=== PATIENT | male | born 1935 | race Caucasian/White ===

== ENCOUNTER 2016-11-14 07:33 | Emergency (ER) | payer MEDICARE ==
[~2016-11-14] VITALS: Ht 167.6 cm; Wt 86.4 kg
[~2016-11-14 07:33] MED LIST: ALBU2.5V4 INHALATION; BENZ-12 PO; DOXY100C2 PO; METF500T4 PO; OMEG1CAP56 PO; SIMV80TA4 PO; TAMS0.4C98 PO; [UNRECOGNIZED DRUG - OTHER] PO
[2016-11-14 07:40] VITALS: BP 164/90; PULSE 86; RESP 16; O2SAT 95
[2016-11-14] MEDS ORDERED: CHOL100043 PO (07:45)
[2016-11-14] MEDS ORDERED: WEIGHT LOSS MED PO (07:47)
--- NOTE | 2016-11-14 07:52 | ED.REPORT ---
HPI-General Illness Date of Service Nov 14, 2016 ED Provider: Shiv Bryan MD The patient is a 81 year old male with history of Alzheimer's disease and BPH, who presents to the emergency department complaining constipation that began 2 days ago. He has also noticed abdominal bloating and is now experiencing difficulty urinating and increased urinary urgency. His last bowel movement was 3 days ago. He has not passed gas today. He took 2 stool softeners yesterday with no change. He has had similar symptoms in the past that were improved with an enema. He does not take any pain medication on a regular basis. He denies fever, chills, nausea or vomiting. Nursing Notes Stated Complaint: CONSTIPATED Chief Complaint: Male Abdominal Pain Nursing Notes Reviewed: Yes Allergies: Coded Allergies: morphine (Unverified Allergy, Severe, KIDNEY FAILURE, 11/14/16) codeine (Verified Allergy, Unknown, UNKNOWN, 11/14/16) Scheduled ([Herbal Life Prostate]) 1 DOSE PO HS ([otc weight loss med]) 500 MG PO BID Cholecalciferol (Vitamin D3) (Vitamin D) 1,000 Unit Tablet 8,000 UNIT PO DAILY [place]-3 Fatty Acids/Fish Oil ([place] 3 1,000 mg Softgel) 1 Each Capsule 2 EACH PO BID Polyethylene Glycol 3350 (Miralax) 17 Gm Powd.pack 17 GM PO DAILY Simvastatin (Simvastatin) 80 Mg Tablet 80 MG PO HS Tamsulosin (Flomax) 0.4 Mg Capsule 0.4 MG PO DAILY Scheduled PRN Albuterol Neb Soln (Albuterol Neb Soln) 2.5 Mg/3 Ml Vial.neb 2.5 MG INHALATION Q4H PRN PRN For Wheezing Na Phos,M-B/Na Phos,Di-Ba (Fleet Enema) 133 Ml Enema 133 ML RC DAILY PRN PRN For Constipation General Time Seen by : 07:49 Chief Complaint Other (constipation) Hx Obtained From: Patient Arrived By: Walk-in Sudden in Onset?: No Onset Occurred: 2 days ago Symptom Duration: Since onset Location: : Abdomen Quality: Painful Severity: Current: Mild Severity: Maximum: Moderate Recent Healthcare: No recent doctor visit, No recent hospitalization Similar Sx Previous: No Past Medical History Past Medical History Hx of pneumonia BPH Alzheimer's Past Surgical History Appendectomy Family History Noncontributory Smoking History Former Smoker Social History Alcohol Use: Denies alcohol use Drug Use: Denies drug use Other Social History: Local resident Ambulatory Status Independent Review of Systems +difficulty urinating Full Review of Systems Constitutional: Denies: Chills, Fever GI: Reports: Abdominal pain, Constipation, Denies: Nausea, Vomiting Male: Reports Urinary urgency, Reports Urination decreased Complete sys rev & neg: except as marked. Physical Exam Vital Signs Vital Signs Date Time Temp Pulse Resp B/P Pulse Ox O2 Delivery O2 Flow Rate FiO2 11/14/16 11:30 36.8 84 16 144/68 95 Room Air 11/14/16 07:40 36.8 86 16 164/90 95 Room Air Initial VS: Reviewed Head / Eyes: Atraumatic, Normocephalic, PERRL ENT: Mucous membranes moist, Conjunctiva normal, No scleral icterus Neck: Supple, Non-tender, Full range of motion Lymphatic: No lymphadenopathy Extremities: Vascular intact, Neuro intact, No swelling, No tenderness Skin: Warm, Dry, No cyanosis Neurologic: Alert, Oriented, Nonfocal Psychiatric: Mood/affect normal, Behavior normal, Normal thought content General/Constitutional: Awake, Alert, Cooperative Respiratory / Chest: Atraumatic, Breath sounds NL, Breath sounds = bilat, No respiratory distress, No rales, No rhonchi, No wheezing Cardiovascular: Heart rate NL, Regular rhythm, Heart sounds NL, No gallop, No murmurs, No rubs, Cap refill not delayed, Peripheral circulation NL Abdomen: Soft, Non-tender, No guarding, No rebound, BS normoactive, No palpable mass, No pulsatile mass Somewhat distended abdomen. Nontender is all 4 quadrants. There is a well-healed RLQ surgical incision and a reducible umbilical hernia. Lower Extremity / Pelvis / MS: Neurologic intact, Vascular intact, No edema No calf swelling or tenderness Interpretation & Diagnostics X-Ray Abdominal Interpretation IMPRESSION: Significant stool suggestive of constipation. No obstruction. Dictated by: Doretha Mace M.D. on 11/14/2016 at 10:25 Interpretation / Wet Read by: Interpret - Radiologist Re-Eval/Medical Decision Med Decision/Clinical Course The patient is a 81 year old male with history of Alzheimer's disease and BPH, who presents to the emergency department complaining constipation that began 2 days ago. He has also noticed abdominal bloating and is now experiencing difficulty urinating and increased urinary urgency. Here in emergency department patient is afebrile with stable vital signs. Treated with a fleet's enema and magnesium citrate. Thereafter patient had several hard stool balls past though he remained with sensation that he needed to have a bowel movement. 1000 mL on bladder scan, therefore indwelling Ricks catheter was placed. Patient voided 1000 mL of urine. He reported significant improvement in his discomfort. Abdominal x-ray: Significant stool suggestive of constipation. No obstruction. At this time, no findings of acute surgical intra-abdominal process. I do not feel that laboratory studies or further imaging is indicated. Overall presentation most consistent with constipation and I suspect that this is likely at least part of the etiology of his bladder outlet obstruction. He will be discharged with an indwelling Ricks catheter and has been referred to urology. He will start MiraLAX and has been prescribed additional enemas that he can self administer at home. He will return if he has ongoing constipation or any worsening abdominal discomfort. He will follow-up with his primary care physician in the next week. Follow-up and return precautions were reviewed in detail and he was discharged in stable condition. Source of Hx: Old records Time of Eval: 10:40 Re-Evaluation/Progress Note: Rechecked the patient. He has not had a bowel movement. Discussed plan for magnesium citrate and discharge with enemas and miralax. Counseled Regarding: Diagnosis, Lab results, Need for follow-up, When/why to return to ED Discharge & Departure Primary Impression: Constipation Constipation type: unspecified constipation type Qualified Code: K59.00 - Constipation, unspecified Additional Impressions: Urinary retention Bladder outlet obstruction Abdominal distention Disposition: Home Discharge Condition All VS Reviewed: Yes Condition: Stable Additional Instructions: Thank you for seeking care at the emergency room. It is difficult for us to make definitive diagnoses in the ED but we believe that you are constipated. Our primary goal today in the ED was to evaluate you for any life-threatening conditions. Your evaluation was reassuring. You will be discharged with a prescription for Miralax and an enema. Go home and start the Miralax and give yourself another enema. With this combination and the magnesium citrate you were given in the emergency department you should have a bowel movement. Make sure to drink plenty of fluids and eat vegetables and foods with high in fiber. We are going to leave the catheter in place. You will need to followup with a urologist in the next week. We have given you a referral to Dr. Heredia. Call the office on Wednesday to schedule an appointment. You should return to the ED immediately if you continue to not have a bowel movement or if you develop severe abdominal pain, vomiting, fevers, chills, shortness of breath, chest pain, lightheadedness, weakness or any other concerning signs or symptoms. Thank you for letting us partake in your care today. Referrals: Silverio Tejada MD (Family) Giovanna Andrews MD Attestation Portions of this note were transcribed by Berta Sanchez. I, Dr. Bryan personally performed the history, physical exam and medical decision-making; I reviewed and confirmed the accuracy of the information in the transcribed note. Signed by: Bella Li, 11/14/2016 and 1100. copies to: Silverio Tejada MD; Giovanna Andrews MD, Beck O MD Nov 14, 2016 07:52 Berta Sanchez Nov 14, 2016 07:55
--- NOTE | 2016-11-14 10:27 | DRSVH ---
PROCEDURE: X-RAY KUB ([id number]) INDICATIONS: assess for constipation TECHNIQUE: One view of the abdomen acquired. COMPARISON: None. FINDINGS: Surgical changes and devices: None. Bowel: Bowel gas pattern is normal. Significant stool is present. Soft tissues: No suspicious abdominal calcifications. Visualized solid organ contours appear normal in size. Bones: No suspicious bony lesions. IMPRESSION: Significant stool suggestive of constipation. No obstruction. Dictated by: Doretha Mace M.D. on 11/14/2016 at 10:25 Approved by: Doretha Mace M.D. on 11/14/2016 at 10:26
[2016-11-14] MEDS ORDERED: POLY17PO6 PO (10:39)
[2016-11-14] MEDS ORDERED: NA P133E23 RC (10:52)
[2016-11-14 11:30] VITALS: BP 144/68; PULSE 84; RESP 16; O2SAT 95
[2017-03-12] MEDS ORDERED: CHOL200047 PO (11:08)
[2017-03-12] MEDS ORDERED: ASPI-973 PO (11:08)
[2017-03-12] MEDS ORDERED: LISI10TA PO (11:08)
[2017-03-12] MEDS ORDERED: METO25TA6 PO (11:08)
[2017-03-12] MEDS ORDERED: LIP40 PO (11:08)
[2017-03-12] MEDS ORDERED: TIOT18CA3 IH (11:08)
== END 2016-11-14 11:23 | disposition home or self-care (01) ==
LOC: SED 07:33
DX: K59.00 Constipation, unspecified (principal); N32.0 Bladder-neck obstruction; R33.9 Retention of urine, unspecified; R14.0 Abdominal distension (gaseous); G30.9 Alzheimer's disease, unspecified; I10 Essential (primary) hypertension; J44.9 Chronic obstructive pulmonary disease, unspecified; Z87.448 Personal history of other diseases of urinary system; Z87.891 Personal history of nicotine dependence; Z88.5 Allergy status to narcotic agent; Z79.51 Long term (current) use of inhaled steroids

== ENCOUNTER 2017-03-15 02:39 | Day surgery (SDC) | payer OTHER ==
[~2017-03-15] VITALS: Ht 167.6 cm; Wt 86.2 kg
[~2017-03-15 02:39] MED LIST changes: -ALBU2.5V4 INHALATION; +ASPI-973 PO; -BENZ-12 PO; +CHOL200047 PO; -DOXY100C2 PO; +LIP40 PO; +LISI10TA PO; -METF500T4 PO; +METO25TA6 PO; -SIMV80TA4 PO; +TIOT18CA3 IH; -[UNRECOGNIZED DRUG - OTHER] PO
[2017-03-15] MEDS ORDERED: fentaNYL-PF 50 mCg/mL 2 mL Inj IVPUSH PRN (06:00)
[2017-03-15] MEDS ORDERED: Sodium Chloride LOK Flush 10 mL Syringe IV PRN (06:00)
[2017-03-15 09:30] VITALS: BP 142/68; PULSE 91; RESP 16; O2SAT 95
[2017-03-15] MEDS: 0.9% Sodium Chloride 1,000 ML IV SCH ×2 (10:15→10:24)
[2017-03-15 10:30] VITALS: BP 136/71; PULSE 90; RESP 14; O2SAT 96
[2017-03-15 10:39] VITALS: BP 138/72; PULSE 94; RESP 14; O2SAT 97
[2017-03-15 10:42] VITALS: BP 128/65; PULSE 85; RESP 14; O2SAT 97
--- NOTE | 2017-03-16 01:15 | ENDO ---
[address] [address] ENDOSCOPY PROCEDURE PATIENT: NELSON SENIOR : 1935 MR#: [id number] ADMIT: 03/15/2017 JOB ID: [id number] DATE: 03/15/2017 PROCEDURE: Colonoscopy. INDICATION: Change in bowel habits. Patient's ASA classification is two. Mallampati score is two. MEDICATIONS: 1. Versed 2 mg. 2. Fentanyl 75 mcg. INSTRUMENT USED: PCF-H180AL PREP QUALITY: Good. PROCEDURE DETAILS: After informed consent was obtained, the patient was brought to the GI suite, where he was placed on oxygen via nasal cannula and monitored with continuous pulse oximeter, telemetry, and blood pressure monitoring. A time-out was performed. Then, he was placed in a left lateral decubitus position and medications were administered for sedation. Digital rectal exam was performed, which was unremarkable. The colonoscope was then inserted into the rectum and advanced under direct visualization to the cecum, which identified by the presence of the ileocecal valve and appendiceal orifice. Once the cecum was reached, the colonoscope was withdrawn back to the rectum. Mucosa and lumen were examined. In the rectum, retroflexion was performed. Following retroflexion, remaining air in the rectum was suctioned, and procedure was completed. FINDINGS: 1. In the transverse colon, there was a diminutive polyp that was removed with cold biopsy forceps. 2. Just distal to the above-mentioned polyp there was an approximately 4 mm sessile polyp that was removed with a cold snare. The remainder of the colon exam was otherwise unremarkable. IMPRESSION: Two transverse colon polyps, otherwise normal exam from rectum to cecum. RECOMMENDATIONS: 1. Fiber rich diet. 2. Follow up in GI clinic. COMPLICATIONS: None. ESTIMATED BLOOD LOSS: Less than 5 mL.
--- NOTE | 2017-03-16 11:50 | PATH ---
SURGICAL PATHOLOGY Attending Physician:Aram Candelario CASE STATUS: Signed Out PATIENT NAME: NELSON SENIOR PID: [id number] : 1935 DATE COLLECTED:03/15/2017 17:01 SPECIMEN: Colon, Polyp CLINICAL HISTORY: 1. 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 ICD10 D12.3 GROSS DESCRIPTION: The specimen is received in one formalin filled container labeled with the patient's name, sublabeled "transverse colon polyps" and consists of 3 portions of tissue which aggregate to 0.2 x 0.2 x 0.2 CM. The specimen is entirely submitted in one cassette. 03/15/2017 [facility] MICRO DESCRIPTION: See diagnosis. ICD-9 CODES: CPT CODES: 1: 30346 Electronically Signed Out Tex Olivas MD [facility] Pathology [facility] [address], [place] [address] Technical component performed at [facility], [facility] [address], [place], [address]
== END 2017-03-15 23:59 | disposition home or self-care (01) ==
LOC: END 02:39
PROVIDERS: ATTEND Internal Medicine Gastroenterology
DX: D12.3 Benign neoplasm of transverse colon (principal); R19.4 Change in bowel habit; I10 Essential (primary) hypertension; I25.10 Atherosclerotic heart disease of native coronary artery without angina pectoris; E78.5 Hyperlipidemia, unspecified; J44.9 Chronic obstructive pulmonary disease, unspecified; N40.0 Benign prostatic hyperplasia without lower urinary tract symptoms; Z79.82 Long term (current) use of aspirin
CPT/HCPCS: 45380; 45385; G0500; J2250; J3010; J7030